=== PATIENT | male | born 1950 | race Two or more races ===

== ENCOUNTER 2016-09-29 12:22 | Day surgery (SDC) | payer OTHER ==
[~2016-09-29] VITALS: Ht 170.2 cm; Wt 89.2 kg
[~2016-09-29 12:22] MED LIST: ASPI-535; OLME5TAB4; ZOC10
[2016-09-29 14:53] VITALS: Ht 170.2 cm; Wt 89.2 kg
[2016-09-29] MEDS ORDERED: NEXIUM PO (15:09)
[2016-09-29] MEDS ORDERED: LIPITOR PO (15:09)
[2016-09-29] MEDS ORDERED: HYDROCHLOROTHIAZIDE PO (15:11)
[2016-09-29] MEDS ORDERED: PROPOFOL 40 ML ONE (15:24)
[2016-09-29 15:27] VITALS: BP 131/60; PULSE 56; RESP 16
--- NOTE | 2016-09-29 16:09 | GILP ---
DATE OF PROCEDURE: 09/29/2016 NAME OF PROCEDURE: Colonoscopy. SURGEON: Lucian Haley MD PREOPERATIVE DIAGNOSIS: Screening colonoscopy. POSTOPERATIVE DIAGNOSES 1. Colonoscopy all the way to the cecum. 2. Diverticulosis of the colon. 3. Internal hemorrhoids. 4. No colon neoplasm was identified. INDICATION FOR THE PROCEDURE: Mr. David Ramirez is a 66-year-old male patient who noticed a change in the bowel habit. He had history of colon polyps. The patient was scheduled for screening colonosc opy. The procedure and possible complications were well explained to the patient, he understood and conse nted to the procedure. DESCRIPTION OF PROCEDURE: Under the influence of anesthesia, the colonoscope was carefully introduc ed in the rectum and under direct vision, it was advanced all the way to the cecum. FINDINGS: The patient had diverticulosis of the colon. He also had internal hemorrhoids. No colon neoplasm was identified. He tolerated the procedure very well and there was no complication from the procedure. At the end o f the procedure, he was awake with stable vital signs and he was discharged home to the care of his family. IMPRESSION: 1. Colonoscopy all the way to the cecum. 2. Diverticulosis of the colon. 3. Internal hemorrhoids. 4. No colon neoplasm was identified. PLAN: Next screening colonoscopy in 10 years. Dictated By: LUCIAN MOORE/LINDA Conf#: [id number] DID#: [id number] CC: LUCIAN HALEY MD;*EndCC*
[2016-09-29 16:17] VITALS: BP 120/69; PULSE 56; RESP 18
== END 2016-09-29 17:38 | disposition home or self-care (01) ==
LOC: GIL 12:22
PROVIDERS: ATTEND Internal Medicine Gastroenterology
DX: Z12.11 Encounter for screening for malignant neoplasm of colon (principal); K57.90 Diverticulosis of intestine, part unspecified, without perforation or abscess without bleeding; K64.8 Other hemorrhoids; I10 Essential (primary) hypertension; E66.9 Obesity, unspecified; Z68.30 Body mass index [BMI] 30.0-30.9, adult; E78.5 Hyperlipidemia, unspecified